=== PATIENT | female | born 1980 | race Two or more races ===

== ENCOUNTER 2020-04-08 11:02 | Outpatient (CLI) | payer OTHER | END 2020-04-08 11:14 | disposition home or self-care (01) | LOC: RAD 11:02 | PROVIDERS: ATTEND Orthopaedic Surgery | DX: M25.571 Pain in right ankle and joints of right foot (principal); M25.572 Pain in left ankle and joints of left foot ==

== ENCOUNTER 2020-04-08 14:03 | Outpatient (CLI) | payer OTHER | END 2020-04-08 14:18 | disposition home or self-care (01) | LOC: LAB 14:03 | PROVIDERS: ATTEND Orthopaedic Surgery | DX: D64.89 Other specified anemias (principal); E88.89 Other specified metabolic disorders; D68.8 Other specified coagulation defects; N39.0 Urinary tract infection, site not specified; Z22.322 Carrier or suspected carrier of Methicillin resistant Staphylococcus aureus; I10 Essential (primary) hypertension; I49.8 Other specified cardiac arrhythmias; Z76.89 Persons encountering health services in other specified circumstances ==

== ENCOUNTER 2020-04-20 06:00 | Day surgery (SDC) | payer OTHER | END 2020-04-20 15:55 | disposition home or self-care (01) | LOC: CIR.AMB 06:00 | PROVIDERS: ATTEND Orthopaedic Surgery | DX: M20.12 Hallux valgus (acquired), left foot (principal); M21.612 Bunion of left foot; M85.662 Other cyst of bone, left lower leg; Z20.828 Contact with and (suspected) exposure to other viral communicable diseases ==

== ENCOUNTER 2020-05-12 08:54 | Outpatient (CLI) | payer OTHER | END 2020-05-12 09:00 | disposition home or self-care (01) | LOC: RAD 08:54 | PROVIDERS: ATTEND Orthopaedic Surgery | DX: M79.672 Pain in left foot (principal) ==

== ENCOUNTER 2020-06-02 07:40 | Outpatient (CLI) | payer OTHER | END 2020-06-02 07:45 | disposition home or self-care (01) | LOC: RAD 07:40 | PROVIDERS: ATTEND Orthopaedic Surgery | DX: M79.672 Pain in left foot (principal) ==